=== PATIENT | male | born 1975 | race Caucasian/White ===

== ENCOUNTER 2019-06-05 00:40 | Inpatient (IN) | payer MEDICAID ==
[~2019-06-05] VITALS: Ht 180.3 cm; Wt 70.3 kg
[2019-06-05 00:40] VITALS: BP 131/79
--- NOTE | 2019-06-05 01:27 | NUR ---
PT MOVED TO BED #6
--- NOTE | 2019-06-05 01:28 | NUR ---
43 Y/O M BIB SELF WITH CC OF SI X2 WEEKS. AAOX4. WHEN ASKED ABOUT PLAN, PT STATED "I WAS JUST GOING TO SLIT MY THROAT." OPENED KNIFE FOUND IN PT POCKET. PT DENIES CONSUMPTION OF ALCOHOL AND DRUGS. PT RECENTLY HOMELESS FOR PAST 2 MONTHS. PMH OF DEPRESSION AND ANXIETY. PT WAS ON XANAX BUT HAS NOT TAKEN MEDICATON IN 1 YEAR. PT SPEECH LOW BUT CLEAR. BEHAVIOR IS CALM. MOOD SAD. PT BELONGINGS REMOVED FROM ROOM. PT PLACED IN GOWN. BEDRAILX1 UP. WILL CONTINUE TO MONITOR.
--- NOTE | 2019-06-05 03:30 | NUR ---
PT PROVIDED WITH A MEAL. ALL NEEDS MET AT THIS TIME. EMT 1:1 MONITORING.
[2019-06-05 03:44] LABS: BASOPHILS % (AUTO) 0.7 % (0.0-2.0); EOSINOPHILS # (AUTO) 0.5 K/uL (0-0.4); EOSINOPHILS % (AUTO) 7.3 % (0.0-4.0); HEMATOCRIT 41.1 % (36-52); HEMOGLOBIN 13.6 g/dL (12.0-18.0); LYMPHOCYTES # (AUTO) 1.9 K/uL (2.0-11.5); LYMPHOCYTES % (AUTO) 30.1 % (20.5-51.1); MEAN CORPUSCULAR HEMOGLOBIN 30 pg (27-31); MEAN CORPUSCULAR HGB CONC 33 g/dL (33-37); MEAN CORPUSCULAR VOLUME 92.1 fL (80-94); MONOCYTES # (AUTO) 0.6 K/uL (0.8-1.0); MONOCYTES % (AUTO) 8.8 % (1.7-9.3); NEUTROPHILS # (AUTO) 3.4 K/uL (1.8-7.7); NEUTROPHILS % (AUTO) 53.1 % (42.2-75.2); PLATELET COUNT (AUTO) 313 K/uL (140-450); RED BLOOD CELL COUNT(AUTO) 4.47 MIL/uL (4.20-6.10); RED CELL DISTRIBUTION WIDTH 13.8 % (11.6-13.7); WHITE BLOOD COUNT (AUTO) 6.4 K/uL (4.8-10.8)
[2019-06-05 04:10] LABS: ANION GAP 12.7 (8-16); CARBON DIOXIDE 26.7 mmol/L (21-32); CHLORIDE 105 mmol/L (98-107); CREATININE 0.8 mg/dL (0.7-1.3); GFR ARICAN-AMERICAN 136 mL/min (>90); GLUCOSE 98 mg/dL (74-106); POTASSIUM 3.4 mmol/L (3.5-5.1); SODIUM SERUM 141 mmol/L (136-145); UREA NITROGEN, BLOOD 15 mg/dL (7-18)
--- NOTE | 2019-06-05 04:15 | NUR ---
DR. VICNETE BEDSIDE EVALUATING PT
[2019-06-05 04:25] LABS: ALBUMIN 3.6 g/dL (3.4-5.0); ASPARTATE AMINOTRANSFERASE 23 U/L (15-37); THYROID STIMULATING HORMONE 1.73 uIU/mL (0.34-3.74); TOTAL BILIRUBIN 0.4 mg/dL (0.0-1.0)
[2019-06-05 04:26] LABS: SALICYLATE < 2.8 mg/dL (2.8-20.0)
[2019-06-05 04:27] LABS: ACETAMINOPHEN < 0.5 ug/ml (10-30)
[2019-06-05 04:40] LABS: BARBITURATE, URINE NEG. ng/ml (NEG <=200); BENZODIAZEPINE, URINE NEG. ng/mL (NEG <=200); CANNABINOID, URINE POS. ng/mL (NEG <=50); COCAINE, URINE NEG. ng/mL (NEG <=300); OPIATE, URINE NEG. ng/mL (NEG <=2000); PHENCYCLIDINE SCREEN,URINE NEG. ng/mL (NEG <=25)
--- NOTE | 2019-06-05 04:45 | NUR ---
PT SEEN WITH EYES CLOSED. VISIBLE CHEST RISE AND FALL NOTED. EMT AT BEDSIDE. WILL CONTINUE TO MONITOR.
--- NOTE | 2019-06-05 06:26 | NUR ---
PT SEEN WITH EYES CLOSED. VISIBLE CHEST RISE AND FALL NOTED. EMT AT BEDSIDE. WILL CONTINUE TO MONITOR
--- NOTE | 2019-06-05 07:10 | NUR ---
REPORT GIVEN TO LANDON NORRIS. PT IN STABLE CONDITION. TRANSFER OF CARE AT THIS TIME.
--- NOTE | 2019-06-05 07:23 | NUR ---
RESTING WITH OU CLOSED, NO S/S RESP DISTRESS --NO GRIMACE NO MOAN NOTED SITTER REMAINS AT BEDSIDE
--- NOTE | 2019-06-05 08:00 | NUR ---
PT AT 100% OF BREAKFAST
--- NOTE | 2019-06-05 10:06 | NUR ---
PSYCHIATRIST CALLED REQUESING INFO ON PT
--- NOTE | 2019-06-05 10:08 | NUR ---
Dr. Pineda evaluating patient via Telepsychiatry.
--- NOTE | 2019-06-05 10:17 | NUR ---
PT ON TELEPSYCH
--- NOTE | 2019-06-05 11:11 | NUR ---
[employer] OFFICER CHELSEA SPEAKING WITH PT FOR 6481 HOLD
[2019-06-05] MEDS ORDERED: SERTRALINE 50 MG TAB PO ONE (12:35)
--- NOTE | 2019-06-05 13:11 | NUR ---
PT FINISHED 100% LUNCH--5150 DTS/DTO IN PLACE; SITTER REMAINS AT BEDSIDE COOPERATIVE. CONTINUES TO WAIT FOR PLACEMENT
--- NOTE | 2019-06-05 19:04 | NUR ---
Dr. Daily evaluating patient at bedside.
[2019-06-05] MEDS ORDERED: DOCUSATE SODIUM 100 MG GELCAP PO PRN (19:15)
[2019-06-05] MEDS ORDERED: ONDANSETRON 4 MG/2 ML VIAL IM/IVP PRN (19:15)
[2019-06-05] MEDS ORDERED: LORazepam 2 MG/ML VIAL IM/IVP PRN (19:15)
[2019-06-05] MEDS ORDERED: ZOLPIDEM 5 MG TAB PO PRN (19:15)
[2019-06-05] MEDS ORDERED: MORPHINE SULFATE 2 MG/ML SYR IVP PRN (19:15)
[2019-06-05] MEDS ORDERED: ACETAMINOPHEN 325 MG TAB PO PRN (19:15)
--- NOTE | 2019-06-05 19:19 | NUR ---
Pt transferred to Med/Surg via WHEELCHAIR TO ROOM 109-A , REPORT GIVEN TO BRIANNE NAVARRETE
--- NOTE | 2019-06-05 20:00 | NUR ---
REPORT RECEIVED FROM AM NURSE AT BEDSIDE. PT IN STABLE CONDITION. AAOX4. INTRODUCED SELF TO PT. PT HAS COMPLAINTS OF PAIN. WILL MEDICATE. NO SOB. AFEBRILE. PT IS AMBULATORY. PT HAS NO IV ACCESS AT THIS TIME. AWARE. SKIN WARM, DRY, AND INTACT WITH NO OPEN WOUNDS. MRSA SENT TO LAB. BED LOCKED IN LOW POSITION. CALL MARIO WITHIN REACH. SAFETY PRECAUTION IN PLACE. ALL NEEDS MET AT THIS TIME.
[2019-06-05 20:21] LABS: CHOL/HDL RATIO 3.5 (1-4.5); PHOSPHORUS 3.4 mg/dL (2.5-4.9)
[2019-06-05 20:27] LABS: PROTHROMBIN TIME 10.7 secs (10.8-13.4)
[2019-06-05] MEDS: HYDROcodone/APAP 5/325 MG 1 TAB TAB PO PRN (20:44)
--- NOTE | 2019-06-05 20:44 | NUR ---
NORCO GIVEN FOR 6/10 GENERALIZED PAIN. PT TOLERATED WELL.
--- NOTE | 2019-06-05 21:17 | NUR ---
KDUR GIVEN PO FOR DECREASED POTASSIUM. PT TOLERATED WELL.
[2019-06-05] MEDS ORDERED: POTASSIUM CHLORIDE 10 MEQ TABER PO SCH (21:30)
[2019-06-05 21:55] VITALS: BP 114/73
--- NOTE | 2019-06-05 23:00 | NUR ---
PT LAYING IN BED BUT AROUSABLE. NO S/S OF DISTRESS NOTED. WILL CONTINUE TO MONITOR.
[2019-06-06] VITALS: BP 110/71
--- NOTE | 2019-06-06 01:00 | NUR ---
PT SLEEPING COMFORTABLY IN BED BUT AROUSABLE. NO S/S OF DISTRESS NOTED. NO COMPLAINTS OF PAIN. NO SOB. AFEBRILE. WILL CONTINUE TO MONITOR.
--- NOTE | 2019-06-06 03:00 | NUR ---
PT SLEEPING COMFORTABLY BUT AROUSABLE. NO S/S OF DISTRESS NOTED. RESPIRATIONS EVEN, UNLABORED, AND WNL. WILL CONTINUE TO MONITOR.
--- NOTE | 2019-06-06 05:20 | NUR ---
PT UP OUT OF BED USING THE RESTROOM. NO S/S OF DISTRESS NOTED. WILL CONTINUE TO MONITOR.
--- NOTE | 2019-06-06 06:35 | NUR ---
PT SLEEPING COMFORTABLY. PT IN STABLE CONDITION.
[2019-06-06 07:08] LABS: BASOPHILS % (AUTO) 0.6 % (0.0-2.0); EOSINOPHILS # (AUTO) 0.5 K/uL (0-0.4); EOSINOPHILS % (AUTO) 7.8 % (0.0-4.0); HEMATOCRIT 44.7 % (36-52); HEMOGLOBIN 14.7 g/dL (12.0-18.0); LYMPHOCYTES # (AUTO) 1.4 K/uL (2.0-11.5); LYMPHOCYTES % (AUTO) 23.5 % (20.5-51.1); MEAN CORPUSCULAR HEMOGLOBIN 30 pg (27-31); MEAN CORPUSCULAR HGB CONC 33 g/dL (33-37); MEAN CORPUSCULAR VOLUME 92.4 fL (80-94); MONOCYTES # (AUTO) 0.5 K/uL (0.8-1.0); NEUTROPHILS # (AUTO) 3.6 K/uL (1.8-7.7); NEUTROPHILS % (AUTO) 60.1 % (42.2-75.2); PLATELET COUNT (AUTO) 320 K/uL (140-450); RED BLOOD CELL COUNT(AUTO) 4.84 MIL/uL (4.20-6.10); RED CELL DISTRIBUTION WIDTH 13.9 % (11.6-13.7)
--- NOTE | 2019-06-06 07:30 | NUR ---
RECEIVED PT AAOX4. NO SOB NOTED. NO C/O PAIN AT THIS TIME. NO IV ACCESS, MD AWARE. WITH SITTER AT BEDSIDE. WILL CONTINUE TO MONITOR FOR SUICIDAL IDEATION.
[2019-06-06 07:58] LABS: ANION GAP 9.2 (8-16); CARBON DIOXIDE 32.3 mmol/L (21-32); CREATININE 0.9 mg/dL (0.7-1.3); POTASSIUM 4.5 mmol/L (3.5-5.1)
[2019-06-06 08:00] VITALS: BP 111/76
--- NOTE | 2019-06-06 09:04 | NUR ---
Change of shift report given, will continue to help facilitate placement
[2019-06-06] MEDS: SERTRALINE 50 MG TAB PO SCH (09:48)
[2019-06-06] MEDS: HYDROcodone/APAP 5/325 MG 1 TAB TAB PO PRN ×2 (10:34→22:04)
--- NOTE | 2019-06-06 12:30 | NUR ---
PT CONSUMED 100% OF BREAKFAST AND LUNCH SERVED. FOOD TOLERATED WELL.
--- NOTE | 2019-06-06 15:15 | NUR ---
PT SEEN BY DR. NAVARRETE AT THE BEDSIDE. PER DR. NAVARRETE, HE WILL COME TO RE-EVALUATE PT TOMORROW.
[2019-06-06 16:00] VITALS: BP 110/75
--- NOTE | 2019-06-06 16:55 | NUR ---
PT RESTING. NO SOB NOTED. NO COMPLAINTS MADE.
--- NOTE | 2019-06-06 19:00 | NUR ---
PT AWAKE. NO SOB NOTED. NO COMPLAINTS MADE. NO SUICIDAL IDEATION NOTED THE ENTIRE SHIFT. WITH SITTER AT THE BEDSIDE. WILL ENDORSE TO NEXT SHIFT NURSE FOR CONTINUITY OF CARE.
--- NOTE | 2019-06-06 19:01 | NUR ---
REPORT RECEIVED FROM AM NURSE AT BEDSIDE. PT IN STABLE CONDITION. AAOX4. INTRODUCED SELF TO PT. NO COMPLAINTS OF PAIN. NO SOB. AFEBRILE. PT IS AMBULATORY WITH BATHROOM PRIVILEGES. PT CURRENTLY HAS NO IV SITE. MD AWARE. SKIN WARM, DRY, AND INTACT WITH NO OPEN WOUNDS. PATIENT HAS 1:1 SITTER. BED LOCKED IN LOW POSITION. ALL NEEDS MET AT THIS TIME.
--- NOTE | 2019-06-06 21:00 | NUR ---
PT SLEEPING COMFORTABLY BUT AROUSABLE. NO S/S OF DISTRESS NOTED. WILL CONTINUE TO MONITOR.
--- NOTE | 2019-06-06 22:04 | NUR ---
NORCO GIVEN FOR 6/10 SHOULDER PAIN. PT TOLERATED WELL.
[2019-06-07] VITALS: BP 113/67
--- NOTE | 2019-06-07 | NUR ---
PT SLEEPING COMFORTABLY BUT AROUSABLE. NO S/S OF DISTRESS NOTED. VS STABLE. WILL CONTINUE TO MONITOR.
--- NOTE | 2019-06-07 01:30 | NUR ---
PT SLEEPING COMFORTABLY BUT AROUSABLE. NO S/S OF DISTRESS NOTED. NO COMPLAINTS OF PAIN. NO SOB. AFEBRILE. WILL CONTINUE TO MONITOR.
--- NOTE | 2019-06-07 03:30 | NUR ---
PT SLEEPING COMFORTABLY BUT AROUSABLE. NO S/S OF DISTRESS NOTED. WILL CONTINUE TO MONITOR.
--- NOTE | 2019-06-07 04:50 | NUR ---
Notified Enmanuel NAVARRETEoperating room registered nurse nurse , there are still no vacancy at any of the designated facilities at this time.
--- NOTE | 2019-06-07 05:00 | NUR ---
PT SLEEPING COMFORTABLY BUT AROUSABLE. NO S/S OF DISTRESS NOTED. RESPIRATIONS EVEN, UNLABORED, AND WNL. WILL CONTINUE TO MONITOR.
--- NOTE | 2019-06-07 06:30 | NUR ---
PT SLEEPING COMFORTABLY BUT AROUSABLE. NO S/S OF DISTRESS NOTED. NO COMPLAINTS OF PAIN. NO SOB. AFEBRILE. WILL CONTINUE TO MONITOR.
--- NOTE | 2019-06-07 07:25 | NUR ---
RECEIVED REPORT FROM [employer] SALES CONSULTANT NURSE. PT AROUSABLE TO NAME, AAOX4. NO C/O PAIN AT THIS TIME. NO IV ACCESS, PHYSICIANS AWARE. RESPIRATIONS EVEN AND UNLABORED ON RA. ACTIVE BS, ABD SOFT. SKIN IS INTACT WARM TO TOUCH. 1:1 SITTER AT BEDSIDE. PER PT, "NONE" WHEN ASKED IF HE HAS PLANS OF HURTING HIMSELF. DR. GONZALEZREES TO REASSESS AT A LATER TIME TODAY. REVIEWED POC WITH PT, PT VERBALIZED UNDERSTANDING.
[2019-06-07 08:00] VITALS: BP 118/65
[2019-06-07 08:17] LABS: BASOPHILS % (AUTO) 0.4 % (0.0-2.0); EOSINOPHILS # (AUTO) 0.6 K/uL (0-0.4); EOSINOPHILS % (AUTO) 7.1 % (0.0-4.0); HEMATOCRIT 48.2 % (36-52); HEMOGLOBIN 15.9 g/dL (12.0-18.0); LYMPHOCYTES # (AUTO) 1.7 K/uL (2.0-11.5); LYMPHOCYTES % (AUTO) 18.9 % (20.5-51.1); MEAN CORPUSCULAR HEMOGLOBIN 31 pg (27-31); MEAN CORPUSCULAR HGB CONC 33 g/dL (33-37); MEAN CORPUSCULAR VOLUME 93.2 fL (80-94); MONOCYTES # (AUTO) 0.7 K/uL (0.8-1.0); MONOCYTES % (AUTO) 8.3 % (1.7-9.3); NEUTROPHILS # (AUTO) 5.8 K/uL (1.8-7.7); NEUTROPHILS % (AUTO) 65.3 % (42.2-75.2); PLATELET COUNT (AUTO) 333 K/uL (140-450); RED BLOOD CELL COUNT(AUTO) 5.17 MIL/uL (4.20-6.10); RED CELL DISTRIBUTION WIDTH 13.9 % (11.6-13.7); WHITE BLOOD COUNT (AUTO) 8.8 K/uL (4.8-10.8)
--- NOTE | 2019-06-07 08:27 | NUR ---
PATIENT HAS BEEN SCREENED AND CATEGORIZED LOW NUTRITION RISK. PATIENT WILL BE SEEN WITHIN 7 DAYS OF ADMISSION. 06/12/[address]
[2019-06-07 08:34] LABS: ANION GAP 11.7 (8-16); POTASSIUM 4.7 mmol/L (3.5-5.1)
[2019-06-07 08:47] LABS: MAGNESIUM 2.3 mg/dL (1.8-2.4)
[2019-06-07] MEDS: SERTRALINE 50 MG TAB PO SCH (09:39)
--- NOTE | 2019-06-07 09:39 | NUR ---
PT GIVEN ZOLOFT PER ORDER, VERBALIZED INDICATION AND POTENTIAL SIDE EFFECTS. NO SIGNS OF DISTRESS AT THIS TIME.
--- NOTE | 2019-06-07 12:26 | NUR ---
Called the following facilities: [facility] s/w Heidi no beds [facility] s/w Crescencio no beds [facility] s/w Giovana, packet fax for review [facility] s/w Gigi packet fax for review
--- NOTE | 2019-06-07 12:30 | NUR ---
Called the following facilities: [facility] s/w Lynne no beds [facility] s/w Severiano no beds [facility] s/w Delfino no beds [facility] s/w Greg no beds
--- NOTE | 2019-06-07 12:41 | NUR ---
S/W Alexandra (RN for patient). Patient is going to be re-evaled by Dr. Gaines (Psych MD) to see if he still needs placement. Alexandra will call back with information
--- NOTE | 2019-06-07 13:00 | NUR ---
PT GIVEN [employer] SANDWICH PER REQUEST. NO SIGNS OF DISTRESS AT THIS TIME.
[2019-06-07] MEDS: HYDROcodone/APAP 5/325 MG 1 TAB TAB PO PRN (14:02)
--- NOTE | 2019-06-07 14:02 | NUR ---
PT GIVEN NORCO PER ORDER D/T C/O LEVEL 6/10 PAIN TO RIGHT SHOULDER. WILL REASSESS WITHIN 1 HOUR.
[2019-06-07] MEDS ORDERED: SERT-146 PO (15:41)
[2019-06-07 16:00] VITALS: BP 124/75
--- NOTE | 2019-06-07 16:07 | NUR ---
Patient has been accepted to [facility] S/W Giovana Accepting MD: Dr. Alejandro Tejeda Floor: 2nd floor "Dummy room 500-1 Report: [phone] Gave info to patient's RN Alexandra. Per Alexandra, patient is ambulatory, not conserved and no mental disabilities
--- NOTE | 2019-06-07 16:58 | NUR ---
CONTACTED [facility], ABLE TO SPEAK TO BRANDON REGARDING TRANSPORT AUTH. HE STATED THEY ARE NOT DELEGATED FOR AUTH FOR IN PATIENT PSYCHE "PAYMENT WILL BE CARVED OUT TO THE DEPT OF HEALTH." NO NEED FOR TRANSPORT AUTHORIZATION AND THEY ARE CONTRACTED WITH [facility] [phone]. CONTACTED [facility] AT THE PROVIDED NUMBER, ABLE TO SPEAK TO [place]. SHE STATED RESULTS TECHNICIAN WILL BE AT 2100PM, TRANSPORT WILL TAKE UP TO 4 HOURS FROM NOW. PROVIDED WITH UNIT'S PHONE NUMBER TO CONTACT FOR ETA. PRIMARY RN MADE AWARE.
--- NOTE | 2019-06-07 18:30 | NUR ---
GIVEN REPORT TO LANDON GERONIMO FROM [facility], TEL NO. [phone]. ALL QUESTIONS ANSWERED AND CLARIFIED.
--- NOTE | 2019-06-07 19:20 | NUR ---
ENDORSED PT TO CLOTH SPREADER SCREEN PRINTING NURSE. PT HAS NO SIGNS OF DISTRESS AT THIS TIME.
[2019-06-07 20:20] VITALS: BP 107/70
--- NOTE | 2019-06-07 20:20 | NUR ---
SEEN PT AWAKE, ALERT, ORIENTED RESTING IN BED. INITIAL ASSESSMENT DONE. VITAL SIGNS CHECKED. PT DENIES ANY DISCOMFORT. PT ASKING HOW LONG HE'S STAYING IN THE PSYCH FACILITY AND ALSO, HE WANTS TO TALK TO THE DOCTOR. WILL NOTIFY MD. PT DENIES ANY NEEDS. SAFETY REINFORCED. SITTER AT BEDSIDE. AWAITING FOR TRANSPORT AT 2100.
--- NOTE | 2019-06-07 21:32 | NUR ---
PER MT KAYA A COMMERCIAL PORTFOLIO MANAGER CALLING GLOBAL COMPENSATION ANALYST FOR PT MAIA DAVID, PT IS TO BE TRANSFERRED TO INPATIENT PSYCH FACILITY, BILINGUAL RESEARCH INTERVIEWER ARCHANA MADE AWARE, CALLED [facility] #[phone] FOR CLARIFICATION, ON HOLD FOR 20 MINUTES, PER ARCHANA CUSTOMS EXAMINER TO HOLD DISCHARGE FOR NOW SINCE THEY SEND A [facility] TRANSPORT, DR ALVARES AND PRIMARY RN ROSALIND MADE AWARE.
--- NOTE | 2019-06-07 22:03 | NUR ---
CALLED ANOTHER NUMBER FOR [facility] [phone] AND TALKED TO AIXA, INFORMED HER THAT PT IS 5150, SHE WILL GET A BLS TRANSPORT AND WILL CALL ME WITH A NEW ETA FOR CHIMNEY BUILDER HELPER, PRIMARY RN AND TUBE WINDER HAND MADE AWARE.
--- NOTE | 2019-06-08 00:29 | NUR ---
PT SLEEPING COMFORTABLY. WILL AWAIT FOR TRANSPORT.
--- NOTE | 2019-06-08 00:32 | NUR ---
CALLED [facility] TO FOLLOW UP TRANSPORT, SPOKE TO ABRAHAM, ASK WHAT AMBULANCE IS USUALLY CONTRACTED FOR 5150 PTS TRANSPORT, MADE AWARE THAT [facility] TRANSPORT IS USED FOR 5150 PTS, STATED HE WILL CALL [facility] TRANSPORT NOW.
--- NOTE | 2019-06-08 01:07 | NUR ---
ABRAHAM FROM [facility] CALLED AND GAVE ETA FOR [facility]ORT TO BE HERE IN 1 HOUR, LANDON BOYER MADE AWARE.
--- NOTE | 2019-06-08 01:28 | NUR ---
CALLED FACILITY TO LET THEM KNOW PT WILL STILL COME ITS JUST THAT THERE WAS AN ISSUE W/ THE TRANSPORTATION ARRANGEMENT. HE SAID "YES, SOMEBODY CALLED US ALREADY."
--- NOTE | 2019-06-08 02:00 | NUR ---
TRANSPORT HERE FOR PT. PT WAS ASKING FOR HIS BELONGINGS. CALLED SECURITY TO BRING IT IN. [facility] ASKED TO CALL THE FACILITY IF ITS OK FOR PT TO COME BECAUSE THE 5150 HOLD WILL TODAY @1100. SPOKE TO YOHAN FROM THE FACILITY AND SAID THEY WILL STILL ACCEPT HIM. INFORMED [facility] TRANSPORT.
--- NOTE | 2019-06-08 02:30 | NUR ---
PT LEFT VIA [facility]. DOCUMENTS GIVEN TO [facility] STAFF.
== END 2019-06-08 02:30 | DRG 425 ==
LOC: MED 00:40 → MTU 18:58
PROVIDERS: ADMIT General Practice; ATTEND General Practice
DX: E87.6 Hypokalemia (principal); R45.851 Suicidal ideations; F32.9 Major depressive disorder, single episode, unspecified; F15.10 Other stimulant abuse, uncomplicated; F12.10 Cannabis abuse, uncomplicated; F41.9 Anxiety disorder, unspecified; F17.210 Nicotine dependence, cigarettes, uncomplicated; Z59.0 Homelessness
CPT/HCPCS: 36415; 71045; 80048; 80053; 80305; 83036; 83690; 83735; 84100; 84443; 85025; 85610; 85730; 87081; 99285; G0480; G0482; J2060; Q0092